=== PATIENT | female | born 1960 | race Two or more races ===

== ENCOUNTER 2019-07-31 12:30 | Emergency (ER) | payer OTHER ==
[~2019-07-31] VITALS: Ht 170.2 cm; Wt 63.5 kg
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
[2019-07-31 12:58] VITALS: BP 115/71
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
[2019-07-31 13:24] VITALS: BP 118/72
--- NOTE | 2019-07-31 13:24 | NUR ---
ER DISCHARGE NOTE: Patient is cleared to be discharged per ERMD, pt is aox4, on room air, with stable vital signs. pt was given dc and prescription instructions, pt was able to verbalize understanding, pt id band removed. pt is able to ambulate with steady gait. pt took all belongings. Pt instructed on MRI directions.
== END 2019-07-31 13:24 | disposition home or self-care (01) ==
LOC: EMR 13:02
DX: R51 Headache (principal)
CPT/HCPCS: 99281